=== PATIENT | female | born 1990 | race Caucasian/White ===

== ENCOUNTER 2016-05-25 23:50 | Inpatient (IN) | payer OTHER ==
--- NOTE | ~2016-05-25 | OP ---
Record Of Operation [facility] [address] [place]. [address] NAME: CATHERINE LEYVA : 89 STATUS : DIS Romero PAT#: [id number] AGE: 26 ADM/REG DATE : 05/25/16 MR#: [id number] REPORT SERV DATE: 05/27/16 DICTATED BY: CAMILO SPENCER DATE: 05/27/16 REPORT STATUS : Draft TRANSCRIBED BY: MOO DATE: 05/27/16 DATE OF PROCEDURE: 05/26/2016 PREOPERATIVE DIAGNOSIS: Acute appendicitis. POSTOPERATIVE DIAGNOSIS: Acute appendicitis. PROCEDURE: Laparoscopic appendectomy. SURGEON: Camilo Spencer M.D. RESIDENT SURGEON: None. ANESTHESIA: General. ESTIMATED BLOOD LOSS: 20 mL. DETAILS OF PROCEDURE: The patient arrived in the operating suite and placed on the table in supine position. General anesthesia was obtained via an endotracheal tube. The abdomen was prepped and draped in a sterile manner. Marcaine 0.5% with epinephrine was infiltrated just below the umbilicus. A small incision was performed. A 10 mm blunt trocar was inserted through the medial right rectus sheath. The peritoneal cavity was insufflated with CO2 gas to 15 mmHg pressure. Additional trocars were inserted under laparoscopic visualization in the mid epigastrium, in the midline, and in the lower midline. The patient was placed in Trendelenburg and rotated to her left. There was some minimal turbid fluid in the right lower quadrant. The appendix was firm with minimal fibrinous exudate. It was enlarged consistent with early acute appendicitis. The mesoappendix was then grasped and then scored with cautery. Using two firings of the endo MALLORY 45 mm stapling device, the mesentery was divided of the appendix with the vascular load and then using a blue load across the base of the appendix. Minimal bleeding through the staple line was controlled with minimal cautery. Fluid was removed with suction and irrigation. There was no bleeding. Appendix was placed in an Endopouch and withdrawn through the initial trocar site. The peritoneal cavity desufflated. The fascia at the initial site was repaired with 0 Vicryl. Skin closure at all sites with subcuticular 4-0 Monocryl. Sterile dressing was applied. The patient was awakened, extubated, and taken to PACU. /MOO Camilo Spencer M.D. / [id number] CC: Record Of Operation [place] [address] [address] NAME: CATHERINE LEYVA : 89 STATUS : DIS Romero PAT#: [id number] AGE: 26 ADM/REG DATE : 05/25/16 MR#: [id number] REPORT SERV DATE: 05/27/16 DICTATED BY: CAMILO SPENCER DATE: 05/27/16 REPORT STATUS : Draft TRANSCRIBED BY: MOO DATE: 05/27/16 Kaela Trent D.O.
[2016-05-25 22:39] LABS: BASOPHILS 0.1 %; BASOPHILS ABSOLUTE 0.01 10/3/uL (0.0-0.16); EOSINOPHILS 0.1 %; EOSINOPHILS ABSOLUTE 0.02 10/3/uL (0.0-0.53); HEMATOCRIT 40.5 % (36.0-48.0); HEMOGLOBIN 14.2 g/dL (12.0-16.0); IMMATURE GRANULOCYTES 0.2 %; IMMATURE GRANULOCYTES ABSOLUTE 0.03 10/3/uL (0.0-0.11); LYMPHOCYTES 10.2 %; LYMPHOCYTES ABSOLUTE 1.38 10/3/uL (0.67-4.30); MEAN CORPUS HGB CONC 35.1 g/dL (32.0-36.0); MEAN CORPUSCULAR HEMOGLOB 30.7 pg (26.0-34.0); MEAN PLATELET VOLUME 10.2 fL (9.2-13.0); MONOCYTES 5.9 %; NEUTROPHILS 83.5 %; NEUTROPHILS ABSOLUTE 11.31 10/3/uL (2.02-8.40); PLATELET COUNT 323 10/3/uL (150-400); RBC DISTRIBUTION WIDTH 12.3 % (12.0-16.0); RED CELL COUNT 4.62 10/6/uL (4.0-5.6)
[2016-05-25 22:41] LABS: ASCORBIC ACID (UR NOT ORDER) NEG (NEG); BILIRUBIN, URINE NEGATIVE (NEG); ER URINALYSIS TAT 0 Hrs 08 Mins; KETONE, URINE 80 MG/DL (NEG); LEUKOCYTE ESTERASE(NOT OR MOD (NEG); NITRITE (URINE) NEG (NEG); WBC (NOT ORDERED) (RFLEX) 4 (0-5)
[2016-05-25 22:41] LABS: ER CBC TAT 0 Hrs 08 Mins; MANUAL DIFF NO %; MEAN CORPUSCULAR VOLUME 87.7 fL (80-100); WHITE BLOOD CELLS 13.6 10/3/uL (4.5-10.5)
[2016-05-25 22:54] LABS: A/G RATIO 1.1 (0.7-1.9); ALBUMIN 4.2 G/DL (3.5-5.0); ALKALINE PHOSPHATASE 77 U/L (45-117); BUN (BLOOD UREA NITROGEN) 8 MG/DL (6-23); CALCIUM, SERUM 9.1 MG/DL (8.5-10.4); CHLORIDE, SERUM 104 MMOL/L (96-112); CO2 (CARBON DIOXIDE) 22 MMOL/L (24-34); GFR AFRICAN AMERICAN 140 ML/MIN (>=60); GFR NON AFRICAN AMERICAN 120 ML/MIN (>=60); GLOBULIN 3.8 G/DL (2.5-4.1); GLUCOSE, SERUM 121 MG/DL (60-99); POTASSIUM, SERUM 3.8 MMOL/L (3.5-5.3); SGOT(AST) 15 U/L (5-40); SGPT(ALT) 17 U/L (5-65); SODIUM, SERUM 139 MMOL/L (135-148); TOTAL BILIRUBIN 0.8 MG/DL (0-1.2)
[2016-05-26] MEDS ORDERED: LUTERA PO (01:17)
[2016-05-26] MEDS ORDERED: VYVANSE30 MG PO (01:17)
[2016-05-26] MEDS ORDERED: PRILOSEC40 MG PO (01:17)
[2016-05-26 04:33] LABS: BASOPHILS 0.1 %; BASOPHILS ABSOLUTE 0.01 10/3/uL (0.0-0.16); EOSINOPHILS 0 %; ER CBC TAT 0 Hrs 18 Mins; HEMATOCRIT 39.2 % (36.0-48.0); HEMOGLOBIN 13.6 g/dL (12.0-16.0); IMMATURE GRANULOCYTES 0.2 %; IMMATURE GRANULOCYTES ABSOLUTE 0.03 10/3/uL (0.0-0.11); LYMPHOCYTES 6.8 %; LYMPHOCYTES ABSOLUTE 0.91 10/3/uL (0.67-4.30); MEAN CORPUS HGB CONC 34.7 g/dL (32.0-36.0); MEAN CORPUSCULAR HEMOGLOB 30.6 pg (26.0-34.0); MEAN CORPUSCULAR VOLUME 88.1 fL (80-100); MEAN PLATELET VOLUME 10.2 fL (9.2-13.0); MONOCYTES 6.7 %; MONOCYTES ABSOLUTE 0.89 10/3/uL (0.21-1.20); NEUTROPHILS 86.2 %; NEUTROPHILS ABSOLUTE 11.51 10/3/uL (2.02-8.40); PLATELET COUNT 304 10/3/uL (150-400); RBC DISTRIBUTION WIDTH 12.3 % (12.0-16.0); RED CELL COUNT 4.45 10/6/uL (4.0-5.6); WHITE BLOOD CELLS 13.4 10/3/uL (4.5-10.5)
[2016-05-26 04:34] LABS: MANUAL DIFF NO %
[2016-05-26 04:46] LABS: BUN (BLOOD UREA NITROGEN) 6 MG/DL (6-23); CALCIUM, SERUM 8.7 MG/DL (8.5-10.4); CHLORIDE, SERUM 107 MMOL/L (96-112); CO2 (CARBON DIOXIDE) 21 MMOL/L (24-34); CREATININE 0.62 MG/DL (0.55-1.02); GFR AFRICAN AMERICAN 145 ML/MIN (>=60); GFR NON AFRICAN AMERICAN 125 ML/MIN (>=60); GLUCOSE, SERUM 128 MG/DL (60-99); POTASSIUM, SERUM 3.7 MMOL/L (3.5-5.3); SODIUM, SERUM 140 MMOL/L (135-148)
[2016-05-27] MEDS ORDERED: PCET PO (07:23)
== END 2016-05-27 09:30 | disposition home or self-care (01) | DRG 343 ==
LOC: ER 23:50 → ER/OF 23:59 → 2SO 05-26 06:32
PROVIDERS: Emergency Medicine; Specialist
PROC: 0DTJ4ZZ Resection of Appendix, Percutaneous Endoscopic Approach (ICD-10-PCS; principal; 2016-05-26 07:15)
DX: K35.80 Unspecified acute appendicitis (principal); F90.9 Attention-deficit hyperactivity disorder, unspecified type
CPT/HCPCS: 74176; 80048; 80053; 81001; 83690; 84703; 85025; 87086; 88304; 96374; 96376; 99285; A9270-GY; G0378; J0694; J1170; J2250; J2370; J2405; J2710; J3010